=== PATIENT | female | born 1960 | race Caucasian/White ===

== ENCOUNTER 2022-11-22 08:19 | Day surgery (SDC) | payer MEDICAID ==
[~2022-11-22] VITALS: Ht 157.5 cm; Wt 67.6 kg
[2022-11-22] VITALS (8 sets, daily range): BP systolic 109–133; BP diastolic 53–67
[~2022-11-22 08:19] MED LIST: CALC-793 PO; FURO-150 PO; LACT10SO3 PO; MAGN400C PO; MULT-342 PO; OMEG1CAP2 PO; PROP10TA10 PO; RIFA550T PO; SPIR25TA5 PO; TRAM50TA2 PO; ZINC50TA15 PO
[2022-11-22] MEDS ORDERED: albumin 25% 100mL bottle x 1 IV PRN (08:45)
[2022-11-22] MEDS ORDERED: LIDOcaine 1% 30ml preserv. free vial IV ONE (08:45)
[2022-11-22] MEDS ORDERED: APIX2.5T PO (08:52)
[2022-11-22] MEDS ORDERED: POTA-82 PO (08:52)
[2022-11-22] MEDS ORDERED: SPIR50TA5 PO (08:52)
[2022-11-22] MEDS ORDERED: PROC5TAB10 PO (08:52)
[2022-11-22] MEDS ORDERED: OMEP20CA16 PO (08:52)
[2022-11-22] MEDS ORDERED: VITA-268 PO (08:52)
== END 2022-11-22 10:40 | disposition home or self-care (01) ==
LOC: SSTAY O 08:19
PROVIDERS: ATTEND Radiology Diagnostic Radiology
DX: R18.8 Other ascites (principal); R14.0 Abdominal distension (gaseous); K74.60 Unspecified cirrhosis of liver; B18.2 Chronic viral hepatitis C; G89.29 Other chronic pain; I10 Essential (primary) hypertension; E11.9 Type 2 diabetes mellitus without complications; D69.6 Thrombocytopenia, unspecified; F17.290 Nicotine dependence, other tobacco product, uncomplicated; Z72.89 Other problems related to lifestyle; Z90.710 Acquired absence of both cervix and uterus; Z88.2 Allergy status to sulfonamides; Z88.8 Allergy status to other drugs, medicaments and biological substances; Z79.01 Long term (current) use of anticoagulants; Z79.899 Other long term (current) drug therapy
CPT/HCPCS: 49083; J3490; P9047; A6258

== ENCOUNTER 2023-01-18 07:37 | Day surgery (SDC) | payer MEDICAID ==
[~2023-01-18] VITALS: Ht 157.5 cm; Wt 68.1 kg
[~2023-01-18 07:37] MED LIST changes: +APIX2.5T PO; -CALC-793 PO; -OMEG1CAP2 PO; +OMEP20CA16 PO; +POTA-82 PO; +PROC5TAB10 PO; -PROP10TA10 PO; -SPIR25TA5 PO; +SPIR50TA5 PO; +VITA-268 PO; -ZINC50TA15 PO
[2023-01-18] MEDS ORDERED: albumin 25% 100mL bottle x 1 IV PRN (07:55)
[2023-01-18] MEDS ORDERED: LIDOcaine 1% 30ml preserv. free vial SQ STA (07:58)
[2023-01-18 08:01] VITALS: BP 122/65
[2023-01-18] MEDS ORDERED: LIPA1CAP18 PO (08:06)
[2023-01-18] MEDS ORDERED: ZINC220T3 PO (08:06)
[2023-01-18] MEDS ORDERED: BACL20TA PO (08:06)
[2023-01-18 09:56] VITALS: BP 116/72
[2023-01-18 10:00] VITALS: BP 94/60
[2023-01-18 10:14] VITALS: BP 107/57
[2023-01-18 10:30] VITALS: BP 117/63
== END 2023-01-18 10:55 | disposition home or self-care (01) ==
LOC: SSTAY O 07:37
PROVIDERS: ATTEND Radiology Vascular & Interventional Radiology
DX: R18.8 Other ascites (principal); B18.2 Chronic viral hepatitis C; K74.60 Unspecified cirrhosis of liver; I10 Essential (primary) hypertension; Z88.2 Allergy status to sulfonamides; Z88.8 Allergy status to other drugs, medicaments and biological substances; Z79.899 Other long term (current) drug therapy
CPT/HCPCS: 49083; J3490; P9047; A6258; A6449

== ENCOUNTER 2023-01-21 08:19 | Inpatient (IN) | payer MEDICAID ==
[~2023-01-21] VITALS: Ht 157.5 cm; Wt 64.1 kg
[~2023-01-21 08:19] MED LIST changes: +BACL20TA PO; +LIPA1CAP18 PO; +ZINC220T3 PO
[2023-01-21 10:35] LABS: BASOPHILS % (AUTO) 0.3 % (0-1); EOSINOPHILS % (AUTO) 0.7 % (0-6); HEMATOCRIT 37.9 % (35.0-45.0); HEMOGLOBIN 12.7 g/dl (12.0-16.0); LYMPHOCYTES # (AUTO) 0.2 X10'3 (1.1-4.8); LYMPHOCYTES % (AUTO) 4.7 % (21-51); MEAN CORPUSCULAR HEMOGLOBIN 27.2 PG (27.0-31.0); MEAN CORPUSCULAR HGB CONC 33.5 g/dL (33.0-36.5); MEAN CORPUSCULAR VOLUME 81.2 FL (78-98); MEAN PLATELET VOLUME 8.3 FL (7.4-10.4); MONOCYTES # (AUTO) 0.4 X10'3 (0-0.9); MONOCYTES % (AUTO) 8.6 % (2-12); NEUTROPHILS # (AUTO) 3.5 X10'3 (1.8-7.7); NEUTROPHILS % (AUTO) 85.7 % (42-75); RED BLOOD COUNT 4.67 X10'6 (4.20-5.60); RED CELL DISTRIBUTION WIDTH 21.4 % (11.5-14.5); WHITE BLOOD COUNT 4.1 X10'3 (4.5-11.0)
[2023-01-21 10:42] LABS: PLATELET COUNT 34 X10'3 (140-440)
[2023-01-21 10:48] LABS: ALANINE AMINOTRANSFERASE 32 U/L (12-78); ALBUMIN 3.5 G/DL (3.4-5.0); ALBUMIN/GLOBULIN RATIO 0.9 (1.1-1.5); ALKALINE PHOSPHATASE 90 IU/L (46-116); ANION GAP 7 (8-16); ASPARTATE AMINO TRANSFERASE 56 U/L (10-37); BILIRUBIN,TOTAL 1.7 MG/DL (0.1-1.0); BLOOD UREA NITROGEN 23 MG/DL (7-18); BUN/CREATININE RATIO 24.5 (10.0-20.0); CALCIUM 9.2 MG/DL (8.5-10.1); CHLORIDE 94 MMOL/L (99-107); CREATININE 0.94 MG/DL (0.40-0.90); GLUCOSE 109 MG/DL (70-104); POTASSIUM 4.9 MMOL/L (3.5-5.1); SODIUM 125 MMOL/L (135-145); TOTAL CARBON DIOXIDE 24.1 MMOL/L (24-32); TOTAL PROTEIN 7.5 G/DL (6.4-8.2); eGFR 61 ML/MIN
[2023-01-21] MEDS ORDERED: normal saline 1000ml 1,000 ML IV ONE (15:55)
[2023-01-21 16:28] LABS: CLARITY,URINE CLEAR (Clear); COLOR,URINE YELLOW (Yellow); GLUCOSE, URINE NEGATIVE (Neg); KETONES,URINE NEGATIVE (Neg); LEUKOCYTE ESTERASE ,URINE NEGATIVE (Neg); NITRITES, URINE NEGATIVE (Neg); OCCULT BLOOD,URINE NEGATIVE (Neg); PROTEIN,URINE NEGATIVE (Neg); UROBILINOGEN,URINE 0.2 E.U/dL (0.2-1.0)
[2023-01-21 16:29] LABS: UA COLLECTION TYPE VOIDED
[2023-01-21] MEDS ORDERED: furosemide 10 MG/1 ML 10ml inj IV ONE (16:35)
[2023-01-21] MEDS ORDERED: ondansetron/PF 4mg/2ml inj IV PRN (17:05)
[2023-01-21] MEDS ORDERED: morphine 2 MG/ML inj. syringe IV PRN ×2 (17:05)
[2023-01-21] MEDS ORDERED: magnesium hydroxide 30ml (MOM) UD suspension PO PRN (17:05)
[2023-01-21] MEDS ORDERED: mag hydrox/Alum hydrox/simeth 30ml oral suspension PO PRN (17:05)
[2023-01-21] MEDS ORDERED: acetaminophen 325mg tablet PO PRN (17:05)
[2023-01-21] MEDS ORDERED: FURO40TA4 PO (17:27)
[2023-01-21] MEDS ORDERED: FURO20TA4 PO (17:27)
[2023-01-21] MEDS ORDERED: MAGN250T29 PO (17:27)
[2023-01-21] MEDS ORDERED: POTA10CA45 PO (17:27)
[2023-01-21] MEDS ORDERED: proCHLORperazine 5mg tablet PO PRN (17:35)
[2023-01-21] MEDS ORDERED: magnesium 4gm in 100ml NS 100 ML IV ONE (17:55)
[2023-01-21] MEDS: multivitamins, therapeutics tablet PO SCH (18:33)
--- NOTE | 2023-01-21 19:53 | NUR ---
Patient up to bedside commode w/standby assist
[2023-01-21] MEDS: apixaban 2.5mg tablet PO SCH (20:00)
[2023-01-21] MEDS: furosemide 20 MG/2 ML vial IV SCH (20:50)
[2023-01-21] MEDS: potassium chloride 10mEq ER tablet PO SCH (20:51)
[2023-01-21] MEDS: docusate sod 100mg capsule PO SCH (20:51)
[2023-01-21] MEDS: magnesium oxide 400mg tablet PO SCH (20:52)
[2023-01-21] MEDS: LIPASE/PROTEASE/AMYLASE 10,500 units CAPSULE.DR PO SCH (21:00)
--- NOTE | 2023-01-21 21:13 | NUR ---
called Pharm for meds we didn't have down here.
[2023-01-21] MEDS: rifaximin 550mg tablet PO SCH (21:52)
--- NOTE | 2023-01-21 21:56 | NUR ---
Up to the bedside commode
[2023-01-21 23:47] VITALS: BP 98/50
[2023-01-22 05:52] VITALS: BP 100/52
[2023-01-22 06:00] VITALS: BP 89/51
--- NOTE | 2023-01-22 06:38 | NUR ---
Problems reprioritized. Patient report given, questions answered & plan of care reviewed with Chana CASTILLO.
[2023-01-22 06:40] LABS: BASOPHILS % (AUTO) 0.4 % (0-1); EOSINOPHILS % (AUTO) 1.7 % (0-6); HEMATOCRIT 32.3 % (35.0-45.0); HEMOGLOBIN 10.6 g/dl (12.0-16.0); LYMPHOCYTES # (AUTO) 0.2 X10'3 (1.1-4.8); MEAN CORPUSCULAR HEMOGLOBIN 26.9 PG (27.0-31.0); MEAN CORPUSCULAR HGB CONC 32.9 g/dL (33.0-36.5); MEAN CORPUSCULAR VOLUME 81.6 FL (78-98); MEAN PLATELET VOLUME 8.6 FL (7.4-10.4); MONOCYTES # (AUTO) 0.3 X10'3 (0-0.9); MONOCYTES % (AUTO) 14.5 % (2-12); NEUTROPHILS # (AUTO) 1.8 X10'3 (1.8-7.7); NEUTROPHILS % (AUTO) 74.4 % (42-75); RED BLOOD COUNT 3.96 X10'6 (4.20-5.60); RED CELL DISTRIBUTION WIDTH 21.1 % (11.5-14.5); WHITE BLOOD COUNT 2.4 X10'3 (4.5-11.0)
[2023-01-22 06:44] LABS: PLATELET COUNT 30 X10'3 (140-440)
--- NOTE | 2023-01-22 06:51 | NUR ---
Critical result taken by Hiral CHAPARRO MD notified PAGER ID: [phone] MESSAGE: [id number]: Ana Maria Power Critical PLT noted 30. Shawn Hernandez Addendum: 01/22/23 at 0723 by Chana Reilly LVN 2nd page PAGER ID: [phone] MESSAGE: [id number]: Sheron Power- Christopher PLT noted 30. Shawn Davis9
--- NOTE | 2023-01-22 06:52 | NUR ---
Patient in room ORTHO 4008. I have received report from Junie CHAPARRO and had the opportunity to ask questions and assume patient care.
[2023-01-22] MEDS: apixaban 2.5mg tablet PO SCH ×2 (06:54→20:33)
[2023-01-22 07:04] LABS: ALBUMIN 2.7 G/DL (3.4-5.0); ALBUMIN/GLOBULIN RATIO 0.8 (1.1-1.5); ANION GAP 6 (8-16); ASPARTATE AMINO TRANSFERASE 48 U/L (10-37); BILIRUBIN,TOTAL 1.5 MG/DL (0.1-1.0); BLOOD UREA NITROGEN 19 MG/DL (7-18); CALCIUM 7.9 MG/DL (8.5-10.1); CHLORIDE 100 MMOL/L (99-107); GLUCOSE 94 MG/DL (70-104); POTASSIUM 4.2 MMOL/L (3.5-5.1); SODIUM 131 MMOL/L (135-145); TOTAL CARBON DIOXIDE 25.1 MMOL/L (24-32); eGFR 56 ML/MIN
[2023-01-22 07:05] LABS: ALANINE AMINOTRANSFERASE 25 U/L (12-78); ALKALINE PHOSPHATASE 61 IU/L (46-116)
[2023-01-22 07:17] LABS: ANISOCYTOSIS 3+; PLATELET ESTIMATE DECREASED; TOTAL CELLS COUNTED 100
[2023-01-22 07:18] LABS: ACANTHOCYTES FEW; ELLIPTOCYTES FEW; TEAR DROP CELLS FEW
[2023-01-22] MEDS ORDERED: cloNIDine 0.1 mg tablet PO PRN (07:45)
[2023-01-22] MEDS ORDERED: ZINC SULFATE PO SCH (08:00)
[2023-01-22] MEDS: pantoprazole 40mg Tablet.DR PO SCH (08:00)
[2023-01-22] MEDS: furosemide 20 MG/2 ML vial IV SCH ×3 (08:00→20:14)
[2023-01-22] MEDS ORDERED: non-formulary drug (Magnesium Oxide (Magnesium) 2 TAB) PO SCH (08:00)
--- NOTE | 2023-01-22 08:02 | NUR ---
non admin 0800 lasix due to Bp 89/51
[2023-01-22] MEDS: docusate sod 100mg capsule PO SCH ×2 (08:35→20:00)
[2023-01-22] MEDS: vitamin B comp w/Vit. C tab 1 TAB TABLET PO SCH (08:36)
[2023-01-22] MEDS: magnesium oxide 400mg tablet PO SCH ×2 (08:36→20:13)
[2023-01-22] MEDS: multivitamins, therapeutics tablet PO SCH (08:36)
[2023-01-22] MEDS: rifaximin 550mg tablet PO SCH ×2 (08:37→20:33)
[2023-01-22] MEDS: LIPASE/PROTEASE/AMYLASE 10,500 units CAPSULE.DR PO SCH ×3 (08:37→20:14)
[2023-01-22 08:45] VITALS: BP 95/47
--- NOTE | 2023-01-22 09:51 | NUR ---
BP 95/47, Dr. Dey gave verbal order to LN and charge nurse clara to administer scheduled lasix, and spironolactone. Charge nurse will give Lasix IV
[2023-01-22] MEDS ORDERED: proCHLORperazine 10mg tablet PO PRN (09:57)
[2023-01-22 10:00] VITALS: BP 107/51
--- NOTE | 2023-01-22 10:11 | NUR ---
witnessed Dr. Dey give orders for ADULT EDUCATION MANAGER Chana to give lasix and spiralactone despite patient low BP . I will give lasix for Chana ADULT EDUCATION MANAGER because she is unable to push IV meds
[2023-01-22 10:22] VITALS: BP 107/57
[2023-01-22] MEDS: lactulose 20gm/30ml cup PO SCH ×2 (10:28→20:00)
[2023-01-22] MEDS: spironolactone 50 MG tablet PO SCH (10:28)
[2023-01-22] MEDS: baclofen 10mg tablet PO PRN ×2 (11:15→21:50)
[2023-01-22] MEDS: potassium chloride 10mEq ER tablet PO SCH ×2 (11:15→20:12)
--- NOTE | 2023-01-22 12:13 | NUR ---
Patient refused schedule protonix this morning. Education provided, patient states understanding
[2023-01-22] MEDS: traMADol 50MG tablet PO PRN ×2 (13:59→20:12)
--- NOTE | 2023-01-22 18:18 | NUR ---
Problems reprioritized. Patient report given, questions answered & plan of care reviewed with Junie CHAPARRO.
--- NOTE | 2023-01-22 18:57 | NUR ---
Patient in room ORTHO 4008. I have received report from Chana CASTILLO and had the opportunity to ask questions and assume patient care.
[2023-01-22 19:00] VITALS: BP 105/60
[2023-01-23 06:00] VITALS: BP 106/57
--- NOTE | 2023-01-23 06:39 | NUR ---
Problems reprioritized. Patient report given, questions answered & plan of care reviewed with Raquel CASTILLO and Shahrzad CASTILLO.
[2023-01-23 07:36] LABS: EOSINOPHILS % (AUTO) 1.4 % (0-6); HEMATOCRIT 31.6 % (35.0-45.0); HEMOGLOBIN 10.5 g/dl (12.0-16.0); LYMPHOCYTES # (AUTO) 0.2 X10'3 (1.1-4.8); LYMPHOCYTES % (AUTO) 8.4 % (21-51); MEAN CORPUSCULAR HEMOGLOBIN 27.4 PG (27.0-31.0); MEAN CORPUSCULAR HGB CONC 33.3 g/dL (33.0-36.5); MEAN CORPUSCULAR VOLUME 82.4 FL (78-98); MEAN PLATELET VOLUME 8.6 FL (7.4-10.4); MONOCYTES # (AUTO) 0.4 X10'3 (0-0.9); MONOCYTES % (AUTO) 16.7 % (2-12); NEUTROPHILS # (AUTO) 1.5 X10'3 (1.8-7.7); NEUTROPHILS % (AUTO) 72.5 % (42-75); RED BLOOD COUNT 3.84 X10'6 (4.20-5.60); RED CELL DISTRIBUTION WIDTH 21.1 % (11.5-14.5); WHITE BLOOD COUNT 2.1 X10'3 (4.5-11.0)
[2023-01-23] MEDS: apixaban 2.5mg tablet PO SCH (07:46)
[2023-01-23] MEDS: potassium chloride 10mEq ER tablet PO SCH (07:46)
[2023-01-23] MEDS: LIPASE/PROTEASE/AMYLASE 10,500 units CAPSULE.DR PO SCH (07:46)
[2023-01-23] MEDS: magnesium oxide 400mg tablet PO SCH (07:47)
[2023-01-23] MEDS: vitamin B comp w/Vit. C tab 1 TAB TABLET PO SCH (07:47)
[2023-01-23] MEDS: spironolactone 50 MG tablet PO SCH (07:47)
[2023-01-23] MEDS: multivitamins, therapeutics tablet PO SCH (07:47)
[2023-01-23] MEDS: pantoprazole 40mg Tablet.DR PO SCH (07:47)
[2023-01-23 07:55] LABS: PLATELET COUNT 27 X10'3 (140-440)
--- NOTE | 2023-01-23 07:57 | NUR ---
PAGER ID: [phone] MESSAGE: [id number] denisse Vega Stat lab reported platelets at 27.
[2023-01-23] MEDS: docusate sod 100mg capsule PO SCH (08:00)
[2023-01-23] MEDS: rifaximin 550mg tablet PO SCH (08:01)
[2023-01-23] MEDS: lactulose 20gm/30ml cup PO SCH (08:01)
[2023-01-23 08:04] LABS: ALANINE AMINOTRANSFERASE 30 U/L (12-78); ALBUMIN 2.6 G/DL (3.4-5.0); ALBUMIN/GLOBULIN RATIO 0.8 (1.1-1.5); ALKALINE PHOSPHATASE 73 IU/L (46-116); ANION GAP 6 (8-16); ASPARTATE AMINO TRANSFERASE 49 U/L (10-37); BILIRUBIN,TOTAL 1.1 MG/DL (0.1-1.0); BLOOD UREA NITROGEN 26 MG/DL (7-18); BUN/CREATININE RATIO 28.9 (10.0-20.0); CALCIUM 7.9 MG/DL (8.5-10.1); CHLORIDE 103 MMOL/L (99-107); GLUCOSE 93 MG/DL (70-104); POTASSIUM 4.1 MMOL/L (3.5-5.1); SODIUM 135 MMOL/L (135-145); TOTAL CARBON DIOXIDE 26.2 MMOL/L (24-32); TOTAL PROTEIN 5.8 G/DL (6.4-8.2); eGFR 64 ML/MIN
[2023-01-23] MEDS: furosemide 20 MG/2 ML vial IV SCH (08:24)
[2023-01-23 09:11] LABS: TOTAL CELLS COUNTED 100
[2023-01-23 09:12] LABS: ANISOCYTOSIS 3+; PLATELET ESTIMATE DECREASED
[2023-01-23 09:14] LABS: ELLIPTOCYTES FEW
[2023-01-23] MEDS ORDERED: FURO40TA4 PO (10:09)
--- NOTE | 2023-01-23 12:00 | NUR ---
[facility] I have reviewed and agree with all interventions, assessments performed and documented by Maricruz CASTILLO .
--- NOTE | 2023-01-23 12:12 | NUR ---
Patient transported home via [facility]. Personal items with patient, IV discontinued, alert and appropriate at time of discharge.
== END 2023-01-23 12:05 | disposition home or self-care (01) | DRG 426 ==
LOC: ER 08:20 → ED HOLD 17:09 → ORTHO 4S 23:25
PROVIDERS: ADMIT Internal Medicine; ATTEND Internal Medicine
DX: E87.1 Hypo-osmolality and hyponatremia (principal); D61.818 Other pancytopenia; K72.10 Chronic hepatic failure without coma; R18.8 Other ascites; Z20.822 Contact with and (suspected) exposure to COVID-19; K74.60 Unspecified cirrhosis of liver; Z66 Do not resuscitate; F17.210 Nicotine dependence, cigarettes, uncomplicated; B19.20 Unspecified viral hepatitis C without hepatic coma; K86.1 Other chronic pancreatitis; Z79.01 Long term (current) use of anticoagulants; Z83.3 Family history of diabetes mellitus; Z88.2 Allergy status to sulfonamides; Z88.8 Allergy status to other drugs, medicaments and biological substances; Z79.899 Other long term (current) drug therapy; Z90.49 Acquired absence of other specified parts of digestive tract
CPT/HCPCS: 36415; 71045; 80053; 81003; 83880; 84484; 85007; 85025; 87081; 87502; 87503; 87811; 93005; 97161; 97530; 99285; G0378; J1940; J2270; J2405; J3475; J7030

== ENCOUNTER 2023-02-01 06:53 | Day surgery (SDC) | payer MEDICAID ==
[2023-02-01] VITALS (10 sets, daily range): BP systolic 97–117; BP diastolic 55–73
[~2023-02-01] VITALS: Ht 157.5 cm; Wt 66.8 kg
[~2023-02-01 06:53] MED LIST changes: -FURO-150 PO; +FURO40TA4 PO; +MAGN250T29 PO; -MAGN400C PO; -MULT-342 PO; -POTA-82 PO; +POTA10CA45 PO
[2023-02-01] MEDS ORDERED: LIDOcaine 1% 30ml preserv. free vial SQ STA (07:14)
[2023-02-01] MEDS ORDERED: FURO40TA4 PO (07:24)
[2023-02-01] MEDS ORDERED: FURO20TA4 PO (07:24)
[2023-02-01] MEDS: albumin 25% 100mL bottle x 1 IV PRN ×2 (08:55→09:38)
== END 2023-02-01 10:10 | disposition home or self-care (01) ==
LOC: SSTAY O 06:53
PROVIDERS: ATTEND Radiology Vascular & Interventional Radiology
DX: R18.8 Other ascites (principal); R14.0 Abdominal distension (gaseous); B18.2 Chronic viral hepatitis C; K74.60 Unspecified cirrhosis of liver; G89.29 Other chronic pain; D69.6 Thrombocytopenia, unspecified; I10 Essential (primary) hypertension; E11.9 Type 2 diabetes mellitus without complications; F17.290 Nicotine dependence, other tobacco product, uncomplicated; Z90.710 Acquired absence of both cervix and uterus; Z86.718 Personal history of other venous thrombosis and embolism; Z79.01 Long term (current) use of anticoagulants; Z88.2 Allergy status to sulfonamides; Z88.8 Allergy status to other drugs, medicaments and biological substances; Z79.899 Other long term (current) drug therapy
CPT/HCPCS: 49083; J3490; P9047; A6258; A6449

== ENCOUNTER 2023-02-12 06:08 | Day surgery (SDC) | payer MEDICAID ==
[~2023-02-12] VITALS: Ht 157.5 cm; Wt 67.0 kg
[~2023-02-12 06:08] MED LIST changes: +FURO20TA4 PO
[2023-02-12 06:25] VITALS: BP 115/73
[2023-02-12] MEDS ORDERED: LIDOcaine 1% 30ml preserv. free vial SQ PRN (06:30)
[2023-02-12] MEDS ORDERED: normal saline 1000ml 1,000 ML IV PRN (06:30)
[2023-02-12] MEDS ORDERED: albumin 25% 100mL bottle x 1 IV PRN (06:45)
[2023-02-12 08:20] VITALS: BP 106/59
[2023-02-12 08:30] VITALS: BP 119/72
[2023-02-12 08:45] VITALS: BP 109/63
[2023-02-12 09:00] VITALS: BP 106/63
[2023-02-12 09:15] VITALS: BP 104/44
== END 2023-02-12 09:20 | disposition home or self-care (01) ==
LOC: SSTAY O 06:08
PROVIDERS: ATTEND Radiology Diagnostic Radiology
DX: R18.8 Other ascites (principal); R14.0 Abdominal distension (gaseous); B18.2 Chronic viral hepatitis C; K74.60 Unspecified cirrhosis of liver; G89.29 Other chronic pain; D69.6 Thrombocytopenia, unspecified; I10 Essential (primary) hypertension; E11.9 Type 2 diabetes mellitus without complications; D18.09 Hemangioma of other sites; F17.290 Nicotine dependence, other tobacco product, uncomplicated; Z86.718 Personal history of other venous thrombosis and embolism; Z79.01 Long term (current) use of anticoagulants; Z90.710 Acquired absence of both cervix and uterus; Z79.899 Other long term (current) drug therapy; F10.91 Alcohol use, unspecified, in remission
CPT/HCPCS: 49083; J3490; P9047; A6258

== ENCOUNTER 2023-02-26 08:06 | Day surgery (SDC) | payer MEDICAID ==
[~2023-02-26] VITALS: Ht 157.5 cm; Wt 69.9 kg
[2023-02-26] VITALS (7 sets, daily range): BP systolic 94–122; BP diastolic 37–73
[2023-02-26] MEDS ORDERED: LIDOcaine 1%/PF 5ML 10 MG/ML VIAL SQ ONE (08:25)
[2023-02-26] MEDS ORDERED: PROC-8 PO (08:53)
[2023-02-26] MEDS: albumin 25% 100mL bottle x 1 IV PRN ×2 (09:21→10:03)
== END 2023-02-26 10:45 | disposition home or self-care (01) ==
LOC: SSTAY O 08:06
PROVIDERS: ATTEND Radiology Vascular & Interventional Radiology
DX: R18.8 Other ascites (principal); R14.0 Abdominal distension (gaseous); K74.69 Other cirrhosis of liver; I81 Portal vein thrombosis; B18.2 Chronic viral hepatitis C; G89.29 Other chronic pain; D69.6 Thrombocytopenia, unspecified; I10 Essential (primary) hypertension; E11.9 Type 2 diabetes mellitus without complications; F10.91 Alcohol use, unspecified, in remission; Z90.710 Acquired absence of both cervix and uterus; Z88.2 Allergy status to sulfonamides; Z88.8 Allergy status to other drugs, medicaments and biological substances; Z79.01 Long term (current) use of anticoagulants; Z79.899 Other long term (current) drug therapy
CPT/HCPCS: 49083; J3490; P9047; A6258

== ENCOUNTER 2023-03-14 08:08 | Day surgery (SDC) | payer MEDICAID ==
[2023-03-14] VITALS (8 sets, daily range): BP systolic 97–112; BP diastolic 44–58
[~2023-03-14] VITALS: Ht 157.5 cm; Wt 68.5 kg
[~2023-03-14 08:08] MED LIST changes: +ASCO-134 PO; +BACL-11 PO; -BACL20TA PO; +CALC-437 PO; +CEPH-585 PO; +CHOL20002 PO; -FURO20TA4 PO; -FURO40TA4 PO; +MULT-1085 PO; +OXYC5CAP19 PO; -POTA10CA45 PO; +PROC-8 PO; -PROC5TAB10 PO; -SPIR50TA5 PO; -TRAM50TA2 PO; -VITA-268 PO
[2023-03-14] MEDS ORDERED: LIDOcaine 1%/PF 5ML 10 MG/ML VIAL SQ ONE (08:20)
[2023-03-14] MEDS ORDERED: CEPH250T PO (08:31)
[2023-03-14] MEDS: albumin 25% 100mL bottle x 1 IV PRN ×3 (09:00→10:51)
== END 2023-03-14 11:32 | disposition home or self-care (01) ==
LOC: SSTAY O 08:08
PROVIDERS: ATTEND Radiology Vascular & Interventional Radiology
DX: R18.8 Other ascites (principal); R14.0 Abdominal distension (gaseous); K74.60 Unspecified cirrhosis of liver; B18.2 Chronic viral hepatitis C; G89.29 Other chronic pain; D69.6 Thrombocytopenia, unspecified; I10 Essential (primary) hypertension; E11.9 Type 2 diabetes mellitus without complications; D18.09 Hemangioma of other sites; Z86.718 Personal history of other venous thrombosis and embolism; Z79.01 Long term (current) use of anticoagulants; Z79.899 Other long term (current) drug therapy; Z90.710 Acquired absence of both cervix and uterus; F10.91 Alcohol use, unspecified, in remission
CPT/HCPCS: 49083; J3490; P9047; A6258

== ENCOUNTER 2023-03-19 07:59 | Day surgery (SDC) | payer MEDICAID ==
[2023-03-19] VITALS (7 sets, daily range): BP systolic 90–105; BP diastolic 49–66
[~2023-03-19] VITALS: Ht 157.5 cm; Wt 64.3 kg
[~2023-03-19 07:59] MED LIST changes: -ASCO-134 PO; -CEPH-585 PO; +CEPH250T PO
[2023-03-19] MEDS ORDERED: LIDOcaine 1% 30ml preserv. free vial SQ STA (09:00)
[2023-03-19] MEDS: albumin 25% 100mL bottle x 1 IV PRN ×3 (09:38→10:53)
== END 2023-03-19 12:15 | disposition home or self-care (01) ==
LOC: SSTAY O 07:59
PROVIDERS: ATTEND Radiology Diagnostic Radiology
DX: R18.8 Other ascites (principal); R14.0 Abdominal distension (gaseous); B18.2 Chronic viral hepatitis C; G89.29 Other chronic pain; K74.60 Unspecified cirrhosis of liver; D69.6 Thrombocytopenia, unspecified; I10 Essential (primary) hypertension; E11.9 Type 2 diabetes mellitus without complications; Z86.718 Personal history of other venous thrombosis and embolism; Z79.01 Long term (current) use of anticoagulants; Z90.710 Acquired absence of both cervix and uterus; F17.290 Nicotine dependence, other tobacco product, uncomplicated; F10.91 Alcohol use, unspecified, in remission; Z79.899 Other long term (current) drug therapy
CPT/HCPCS: 49083; J3490; P9047; A6258; A6449

== ENCOUNTER → 2023-03-28 | Day surgery (SDC) | payer MEDICAID ==
[~2023-03-28] VITALS: Ht 157.5 cm; Wt 65.8 kg
[2023-03-28] VITALS (9 sets, daily range): BP systolic 78–105; BP diastolic 23–59
[~2023-03-28] MED LIST changes: +KAY15L PO; +LIDOcaine 1%/PF 5ML 10 MG/ML VIAL IJ ONE; +normal saline 1000ml 1,000 ML IV PRN
[2023-03-28] MEDS: albumin 25% 100mL bottle x 1 IV PRN ×3 (09:47→10:30)
== END | disposition home or self-care (01) ==
LOC: SSTAY O 06:57
PROVIDERS: ATTEND Radiology Vascular & Interventional Radiology
DX: R18.8 Other ascites (principal); R14.0 Abdominal distension (gaseous); B18.2 Chronic viral hepatitis C; G89.29 Other chronic pain; K74.60 Unspecified cirrhosis of liver; D69.6 Thrombocytopenia, unspecified; I10 Essential (primary) hypertension; E11.9 Type 2 diabetes mellitus without complications; I81 Portal vein thrombosis; Z90.710 Acquired absence of both cervix and uterus; F10.91 Alcohol use, unspecified, in remission; F17.290 Nicotine dependence, other tobacco product, uncomplicated; Z88.2 Allergy status to sulfonamides; Z88.8 Allergy status to other drugs, medicaments and biological substances; Z79.899 Other long term (current) drug therapy; Z79.01 Long term (current) use of anticoagulants
CPT/HCPCS: 49083; C1729; J3490; P9047; A6258

== ENCOUNTER 2023-04-05 07:15 | Day surgery (SDC) | payer MEDICAID ==
[2023-04-05] VITALS (11 sets, daily range): BP systolic 92–107; BP diastolic 37–68
[~2023-04-05] VITALS: Ht 157.5 cm; Wt 65.1 kg
[~2023-04-05 07:15] MED LIST changes: -CEPH250T PO; -LIDOcaine 1%/PF 5ML 10 MG/ML VIAL IJ ONE; -normal saline 1000ml 1,000 ML IV PRN
[2023-04-05] MEDS ORDERED: LIDOcaine 1% 30ml preserv. free vial SQ STA (07:20)
[2023-04-05] MEDS ORDERED: normal saline 1000ml 1,000 ML IV PRN (07:35)
[2023-04-05] MEDS: albumin 25% 100mL bottle x 1 IV PRN ×3 (08:25→11:34)
== END 2023-04-05 11:15 | disposition home or self-care (01) ==
LOC: SSTAY O 07:15
PROVIDERS: ATTEND Radiology Vascular & Interventional Radiology
DX: R18.8 Other ascites (principal); R14.0 Abdominal distension (gaseous); B18.2 Chronic viral hepatitis C; G89.29 Other chronic pain; K74.60 Unspecified cirrhosis of liver; D69.6 Thrombocytopenia, unspecified; I10 Essential (primary) hypertension; E11.9 Type 2 diabetes mellitus without complications; E87.1 Hypo-osmolality and hyponatremia; E87.6 Hypokalemia; Z90.710 Acquired absence of both cervix and uterus; F10.91 Alcohol use, unspecified, in remission; F17.290 Nicotine dependence, other tobacco product, uncomplicated; Z86.718 Personal history of other venous thrombosis and embolism; Z79.01 Long term (current) use of anticoagulants; Z79.899 Other long term (current) drug therapy; Z88.2 Allergy status to sulfonamides; Z88.8 Allergy status to other drugs, medicaments and biological substances
CPT/HCPCS: 49083; C1729; J3490; P9047; A6258; A6449

== ENCOUNTER 2023-04-12 07:42 | Day surgery (SDC) | payer MEDICAID ==
[~2023-04-12] VITALS: Ht 157.5 cm; Wt 64.6 kg
[2023-04-12 07:56] VITALS: BP 109/55
[2023-04-12] MEDS ORDERED: CEPH500C81 PO (08:13)
[2023-04-12] MEDS ORDERED: CHOL200074 PO (08:13)
[2023-04-12] MEDS ORDERED: [UNRECOGNIZED DRUG - CODE] PO (08:13)
[2023-04-12] MEDS ORDERED: HYDR25SU7 RC (08:13)
[2023-04-12 11:03] VITALS: BP 112/49
[2023-04-12 11:18] VITALS: BP 97/57
[2023-04-12] MEDS: albumin 25% 100mL bottle x 1 IV PRN ×2 (11:21→11:26)
[2023-04-12 11:33] VITALS: BP 95/50
[2023-04-12 11:48] VITALS: BP 94/50
[2023-04-12 12:04] VITALS: BP 98/51
== END 2023-04-12 13:05 | disposition home or self-care (01) ==
LOC: SSTAY O 07:42
PROVIDERS: ATTEND Radiology Vascular & Interventional Radiology
DX: R18.8 Other ascites (principal); R14.0 Abdominal distension (gaseous); B18.2 Chronic viral hepatitis C; G89.29 Other chronic pain; K74.60 Unspecified cirrhosis of liver; D69.6 Thrombocytopenia, unspecified; I10 Essential (primary) hypertension; E11.9 Type 2 diabetes mellitus without complications; Z86.718 Personal history of other venous thrombosis and embolism; Z90.710 Acquired absence of both cervix and uterus; F10.91 Alcohol use, unspecified, in remission; F17.290 Nicotine dependence, other tobacco product, uncomplicated; Z79.01 Long term (current) use of anticoagulants; Z88.2 Allergy status to sulfonamides; Z88.8 Allergy status to other drugs, medicaments and biological substances; Z98.890 Other specified postprocedural states; Z79.899 Other long term (current) drug therapy
CPT/HCPCS: 49083; C1729; J3490; P9047; A6258; A6449

== ENCOUNTER 2023-04-19 06:45 | Day surgery (SDC) | payer MEDICAID ==
[2023-04-19] VITALS (12 sets, daily range): BP systolic 78–108; BP diastolic 41–60
[~2023-04-19] VITALS: Ht 157.5 cm; Wt 65.7 kg
[~2023-04-19 06:45] MED LIST changes: +CEPH500C81 PO; +CHOL200074 PO; +HYDR25SU7 RC; -KAY15L PO; +[UNRECOGNIZED DRUG - CODE] PO
[2023-04-19] MEDS: albumin 25% 100mL bottle x 1 IV PRN ×3 (10:04→11:24)
== END 2023-04-19 12:10 | disposition home or self-care (01) ==
LOC: SSTAY O 06:45
PROVIDERS: ATTEND Radiology Diagnostic Radiology
DX: R18.8 Other ascites (principal); B18.2 Chronic viral hepatitis C; G89.29 Other chronic pain; K74.60 Unspecified cirrhosis of liver; D69.6 Thrombocytopenia, unspecified; I10 Essential (primary) hypertension; E11.9 Type 2 diabetes mellitus without complications; F10.91 Alcohol use, unspecified, in remission; F17.290 Nicotine dependence, other tobacco product, uncomplicated; Z88.2 Allergy status to sulfonamides; Z88.8 Allergy status to other drugs, medicaments and biological substances; Z86.718 Personal history of other venous thrombosis and embolism; Z90.710 Acquired absence of both cervix and uterus; Z98.890 Other specified postprocedural states; Z79.01 Long term (current) use of anticoagulants; Z79.899 Other long term (current) drug therapy
CPT/HCPCS: 49083; C1729; J3490; P9047; A6258; A6449

== ENCOUNTER 2023-04-29 07:19 | Day surgery (SDC) | payer MEDICAID ==
[2023-04-29] VITALS (8 sets, daily range): BP systolic 92–115; BP diastolic 49–61
[~2023-04-29] VITALS: Ht 157.5 cm; Wt 72.2 kg
[~2023-04-29 07:19] MED LIST changes: -CHOL200074 PO
[2023-04-29] MEDS ORDERED: LIDOcaine 1% 30ml preserv. free vial SQ STA (07:26)
[2023-04-29] MEDS ORDERED: LIDOcaine 1% 30ml preserv. free vial SQ ONE (07:50)
[2023-04-29] MEDS: albumin 25% 100mL bottle x 1 IV PRN ×2 (09:01→09:23)
== END 2023-04-29 11:47 | disposition home or self-care (01) ==
LOC: SSTAY O 07:19
PROVIDERS: ATTEND Radiology Vascular & Interventional Radiology
DX: R18.8 Other ascites (principal); R14.0 Abdominal distension (gaseous); B18.2 Chronic viral hepatitis C; D69.6 Thrombocytopenia, unspecified; K74.60 Unspecified cirrhosis of liver; G89.29 Other chronic pain; I10 Essential (primary) hypertension; E11.9 Type 2 diabetes mellitus without complications; F10.91 Alcohol use, unspecified, in remission; F17.290 Nicotine dependence, other tobacco product, uncomplicated; Z88.0 Allergy status to penicillin; Z88.2 Allergy status to sulfonamides; Z98.890 Other specified postprocedural states; Z86.718 Personal history of other venous thrombosis and embolism; Z90.710 Acquired absence of both cervix and uterus; Z79.899 Other long term (current) drug therapy; Z79.01 Long term (current) use of anticoagulants
CPT/HCPCS: 49083; C1729; J3490; P9047; A6258; A6449

== ENCOUNTER 2023-05-17 06:44 | Day surgery (SDC) | payer MEDICAID ==
[~2023-05-17] VITALS: Ht 157.5 cm; Wt 69.8 kg
[2023-05-17] VITALS (11 sets, daily range): BP systolic 85–107; BP diastolic 46–65; PULSE 66–78; RESP 14–16; TEMP 97.8; O2SAT 98–100
[~2023-05-17 06:44] MED LIST changes: +CEPH-585 PO; -CEPH500C81 PO; +FURO40TA4 PO; -HYDR25SU7 RC; -[UNRECOGNIZED DRUG - CODE] PO
[2023-05-17] MEDS ORDERED: LIDOcaine 1%/PF 5ML 10 MG/ML VIAL SQ ONE (09:00)
[2023-05-17] MEDS: albumin 25% 100mL bottle x 1 IV PRN ×3 (09:39→10:32)
== END 2023-05-17 11:15 | disposition home or self-care (01) ==
LOC: SSTAY O 06:44
PROVIDERS: ATTEND Radiology Diagnostic Radiology
DX: R18.8 Other ascites (principal); R14.0 Abdominal distension (gaseous); B18.2 Chronic viral hepatitis C; G89.29 Other chronic pain; K74.60 Unspecified cirrhosis of liver; D69.6 Thrombocytopenia, unspecified; I10 Essential (primary) hypertension; E11.9 Type 2 diabetes mellitus without complications; F10.91 Alcohol use, unspecified, in remission; F17.290 Nicotine dependence, other tobacco product, uncomplicated; Z90.710 Acquired absence of both cervix and uterus; Z86.718 Personal history of other venous thrombosis and embolism; Z79.01 Long term (current) use of anticoagulants; Z79.899 Other long term (current) drug therapy; Z98.890 Other specified postprocedural states
CPT/HCPCS: 49083; C1729; J3490; P9047; A6258

== ENCOUNTER 2023-05-23 08:37 | Day surgery (SDC) | payer MEDICAID ==
[2023-05-23] VITALS (13 sets, daily range): BP systolic 90–105; BP diastolic 46–64; PULSE 66–83; RESP 12–19; TEMP 97.5; O2SAT 97–100
[~2023-05-23] VITALS: Ht 157.5 cm; Wt 67.2 kg
[~2023-05-23 08:37] MED LIST changes: -CEPH-585 PO
[2023-05-23] MEDS ORDERED: normal saline 1000ml 1,000 ML IV PRN (09:05)
[2023-05-23] MEDS ORDERED: LORA-269 PO (09:34)
[2023-05-23] MEDS ORDERED: ONDA4TAB12 (09:34)
[2023-05-23] MEDS ORDERED: MORP100S7 (09:34)
[2023-05-23] MEDS ORDERED: HALO2ORA3 (09:34)
[2023-05-23] MEDS ORDERED: FENT1PAT8 (09:34)
[2023-05-23] MEDS ORDERED: fentaNYL/PF 50MCG/1 ML 2ML syringe ONE ×2 (12:29→13:40)
[2023-05-23] MEDS ORDERED: midazolam 1 mg/ML 2ml injection ONE (12:29)
[2023-05-23] MEDS ORDERED: ondansetron/PF 4mg/2ml inj ONE (12:34)
[2023-05-23] MEDS ORDERED: albumin (human) 25% 100 ML IV solution IV ONE (13:50)
[2023-05-23] MEDS ORDERED: fentaNYL/PF 50MCG/1 ML 2ML syringe IV ONE (13:58)
[2023-05-23] MEDS ORDERED: albumin (human) 25% 100 ML IV solution IV PRN (14:15)
[2023-05-23] MEDS ORDERED: oxyCODONE IR 5mg (immed. release) tablet PO ONE (15:10)
== END 2023-05-23 17:10 | disposition home or self-care (01) ==
LOC: SSTAY O 08:37
PROVIDERS: ATTEND Radiology Vascular & Interventional Radiology
DX: R18.8 Other ascites (principal); B18.2 Chronic viral hepatitis C; G89.29 Other chronic pain; K74.60 Unspecified cirrhosis of liver; D69.6 Thrombocytopenia, unspecified; I10 Essential (primary) hypertension; E11.9 Type 2 diabetes mellitus without complications; Z86.718 Personal history of other venous thrombosis and embolism; Z79.01 Long term (current) use of anticoagulants; Z79.899 Other long term (current) drug therapy; Z72.89 Other problems related to lifestyle; F12.90 Cannabis use, unspecified, uncomplicated; F17.290 Nicotine dependence, other tobacco product, uncomplicated; Z88.2 Allergy status to sulfonamides; Z88.8 Allergy status to other drugs, medicaments and biological substances; Z98.890 Other specified postprocedural states
CPT/HCPCS: 49418; 99152; 99153; C1729; J2250; J2405; J3010; J7030; P9047; A4620